=== PATIENT | male | born 1955 | race Caucasian/White ===

== ENCOUNTER 2017-05-29 14:07 | Emergency (ER) | payer MEDICAID ==
[~2017-05-29] VITALS: Ht 175.3 cm; Wt 66.4 kg
[~2017-05-29 14:07] MED LIST: HTN; METH4TAB2 PO; NO HOME MEDS; OXYC5TAB3 PO; TRAM-47 PO
[2017-05-29] MEDS ORDERED: SODIUM CHLORIDE 0.9% 1,000 ML IV ONE (14:43)
[2017-05-29] MEDS ORDERED: ONDANSETRON 2MG/ML, 2ML IVPush ONE (15:00)
[2017-05-29] MEDS ORDERED: MORPHINE SULFATE 4 MG/ML, 1ML IVPush PRN (15:00)
[2017-05-29] MEDS ORDERED: SODIUM CHLORIDE FLUSH 10ML SYR IVF ONE (15:00)
[2017-05-29] MEDS ORDERED: ONDANSETRON 2MG/ML, 2ML ONE (15:01)
[2017-05-29] MEDS ORDERED: morphine SULFATE 10 MG/ML, 1ML ONE (15:01)
[2017-05-29 15:22] LABS: BLOOD UREA NITROGEN 9 mg/dL (7-18)
[2017-05-29 15:26] LABS: ASPARTATE AMINO TRANSFERASE 67 U/L (15-37)
[2017-05-29 15:49] LABS: DIFF TOTAL CELLS COUNTED 100 CELL DIFF; HEMOGLOBIN 13.5 g/dL (13.7-18.0); WHITE BLOOD COUNT 6.8 x10^3/uL (3.4-10)
[2017-05-29 15:58] LABS: ANISOCYTOSIS 1+; VERIFY COUNTS? YES
[2017-05-29 16:57] VITALS: BP 118/77
== END 2017-05-29 17:00 | disposition home or self-care (01) ==
LOC: ED 16:56
DX: R51 Headache (principal); B96.89 Other specified bacterial agents as the cause of diseases classified elsewhere; E86.0 Dehydration; J20.8 Acute bronchitis due to other specified organisms; I10 Essential (primary) hypertension; G89.29 Other chronic pain; J44.0 Chronic obstructive pulmonary disease with (acute) lower respiratory infection
CPT/HCPCS: 36415; 70450; 80053; 83735; 85025; 93005; 96361; 96374; 96375; 99285; J2405; J7030